=== PATIENT | female | born 1950 ===

== ENCOUNTER 2017-12-15 10:27 | Day surgery (SDC) | payer BC ==
[~2017-12-15 10:27] MED LIST: Buffered Lidocaine 0.9% SYRIN* 5 ML/SYR SYRINGE INTRADERM ONE; Sodium Citrate/Citric Acid* 15 ML UDC PO ONE
[2017-12-15] MEDS ORDERED: ceFAZolin 2 GM PREMIX (*) 2 GM/50 ML BAG IVPB ONE (10:39)
[2017-12-15] MEDS ORDERED: Sodium Citrate/Citric Acid* 15 ML UDC ONE (10:39)
[2017-12-15] MEDS ORDERED: Bupivacaine 0.5%* 50 ML VIAL ONE (13:11)
[2017-12-15] MEDS ORDERED: Lidocaine 2% PF * 5 ML VIAL ONE (13:29)
[2017-12-15] MEDS ORDERED: Propofol* 10 MG/ML 20 ML BTL IV PUSH ONE (13:29)
[2017-12-15] MEDS ORDERED: fentaNYL* 50 MCG/ML 2 ML VIAL (100 MCG VIAL) ONE ×2 (13:31→14:55)
[2017-12-15] MEDS ORDERED: fentaNYL* 50 MCG/ML 2 ML VIAL (100 MCG VIAL) IV PRN (13:38)
[2017-12-15] MEDS ORDERED: Ondansetron INJ* 2 MG/ML VIAL IV PRN (13:38)
[2017-12-15] MEDS ORDERED: Naloxone* 0.4 MG/ML 1 ML VIAL IV PRN (13:38)
[2017-12-15] MEDS ORDERED: hydrALAZINE IV* 20 MG/ML VIAL ONE (14:53)
[2017-12-15] MEDS ORDERED: Acetaminophen TAB* 325 MG ONE (15:45)
[2017-12-15 16:41] VITALS: BP 152/68
--- NOTE | 2017-12-16 04:47 | OP ---
DATE OF OPERATION: 12/15/17 - [facility] DATE OF : 52 SURGEON: Jimmy Loya MD [facility] OWNER: KRISTEN Deleon. An general office assistant was needed for the entirety of the procedure to aid in positioning of the arm and retraction. ANESTHESIOLOGIST: Miles Miles DO ANESTHESIA: General. PRE-OP DIAGNOSIS: Right displaced intraarticular distal radius fracture. POST-OP DIAGNOSIS: Right displaced intraarticular distal radius fracture. OPERATIVE PROCEDURE: Open reduction and internal fixation of right 3-part intraarticular distal radius fracture. INDICATIONS: Arua has a very displaced right intraarticular distal radius fracture sitting in a lot of dorsal tilt. It is also relatively short. I talked to her about the risks and benefits of surgery. She had wanted to proceed with surgery. She understands there is a risk of infection, nonunion, malunion, need for removal of hardware. She wants to proceed. FINDINGS: See above and below. ESTIMATED BLOOD LOSS: 5 mL. COMPLICATIONS: None. DESCRIPTION OF PROCEDURE: Aura was seen in the preoperative holding area. The correct side, site, and procedure were identified. We came back to the operating room where the right arm was prepped and draped in the usual fashion after a thorough pre-scrub. A formal time-out was performed. The arm was exsanguinated with the Esmarch and the tourniquet inflated to 250 mmHg. I went ahead and placed the hand in 10 pounds of traction using the Arthrex hand henson. A longitudinal incision was made over the FCR tendon. Dissection was carried down. The sheath was released. The tendon was retracted ulnarly. The subsheath was released. The pronator quadratus was released off the radial margin and teed back distally preserving the distal capsular ligaments. The fracture fragment was visualized. I mobilized it with a Jasper elevator. I did have to release some of the dorsal periosteum to get it to come back at length. I went ahead at this point and open reduced the fracture. It was sitting in very nice alignment. I corrected the translation with a baby Hohmann on the ulnar aspect of the shaft. Once I had it nicely lined up, I went ahead and brought in my Synthes variable angle distal radius plate. This was secured in place with 3 pins and then one 2.4-mm cortical screw was placed in the oblong hole. I left the traction off. I confirmed the reduction and the placement of the plate on fluoroscopy. I then placed the remainder of my cortical screws in the proximal 2 holes. I came distally and I placed 2.4- mm locking screws in the 4 distal holes. The most radial hole was filled with a variable angle locking screw into the radial styloid. Everything at this point was looking good. I took the arm out of traction again and got final fluoroscopic imaging. Everything was looking good, so we irrigated out the wound. The pronator was closed with 3-0 Vicryl suture. The skin was closed with 4-0 Monocryl suture and Steri-Strips. The operative area was infiltrated with 0.5% Marcaine both a little bit before incision was made and then remainder at the end of the case. The wounds were dressed and a short arm wrist splint was applied. Tourniquet was deflated and the hand pinked up immediately. She was then woken up and taken to the recovery room in stable condition. [id number]/CPS #: [id number] [place]
--- NOTE | 2017-12-16 15:18 | RAD ---
INDICATION: Right wrist ORIF, distal radius fracture. No other history is provided. COMPARISONS: None relevant TECHNIQUE: Fluoroscopy was provided for a surgical procedure. Total fluoroscopy time is: 28 seconds FINDINGS: Spot images demonstrate internal fixation of the distal radius. There is a nondisplaced fracture of the styloid process of the left. IMPRESSION: FLUOROSCOPY WAS PROVIDED FOR A SURGICAL PROCEDURE CPT II Codes: G9500
== END 2017-12-15 16:38 | disposition home or self-care (01) ==
LOC: OREAST 10:27
PROVIDERS: ATTEND Orthopaedic Surgery Hand Surgery
DX: S52.571A Other intraarticular fracture of lower end of right radius, initial encounter for closed fracture (principal); W19.XXXA Unspecified fall, initial encounter; Y92.9 Unspecified place or not applicable; Z86.711 Personal history of pulmonary embolism; Z79.01 Long term (current) use of anticoagulants; M19.90 Unspecified osteoarthritis, unspecified site; Z68.39 Body mass index [BMI] 39.0-39.9, adult; Z87.442 Personal history of urinary calculi
CPT/HCPCS: 76000; A9270-GY; C1713; C1776; J0360; J0690; J2704; J3010